=== PATIENT | female | born 1945 | race Caucasian/White ===

== ENCOUNTER → 2017-09-24 | Outpatient (CLI) | payer MEDICARE ==
--- NOTE | 2017-09-24 14:12 | US ---
EXAMINATION TYPE: US kidneys/renal and bladder DATE OF EXAM: 09/24/2017 COMPARISON: NONE CLINICAL HISTORY: R31.9 HEMATURIA. EXAM MEASUREMENTS: Right Kidney: 9.2 x 4.7 x 3.9 cm Left Kidney: 11.1 x 4.2 x 3.8 cm Post Void Residual Volume: 5.7 mL Right Kidney: No hydronephrosis. Measuring smaller than the left. Cyst visualized lower pole measurin g 1.3 x 1.1 x 1.3 cm Left Kidney: No hydronephrosis or masses seen Bladder: wnl Bilateral Jets seen: Yes Normal Post Void Residual: Yes IMPRESSION: 1. Right renal cyst
== END | disposition home or self-care (01) ==
LOC: RADUSWWP 13:19
PROVIDERS: ATTEND Internal Medicine Geriatric Medicine
DX: N28.1 Cyst of kidney, acquired (principal)
CPT/HCPCS: 76770

== ENCOUNTER → 2022-08-13 | Outpatient (CLI) | payer MEDICARE ==
--- NOTE | 2022-08-13 20:00 | BD ---
EXAMINATION TYPE: Axial Bone Density DATE OF EXAM: 08/13/2022 CLINICAL HISTORY: 76 years old Female. ICD-10 CODE: M81.0 AGE RELATED OSTEOPOROSIS Height: 63" Weight: 152 lbs FRAX RISK QUESTIONS: Alcohol (3 or more units per day): No Family History (Parent hip fracture): No Glucocorticoids (More than 3mos): No (Ex: prednisone, prednisolone, methylprednisolone, dexamethasone, and hydrocortisone). History of Fracture in Adulthood: Yes, left big toe Secondary Osteoporosis: 1. Type 1 Diabetes: No 2. Hyperthyroidism: No 3. Menopause before 45: No 4. Malnutrition: No 5. Chronic liver disease: No Rheumatoid Arthritis: No Current Tobacco Use: No RISK FACTORS HISTORY OF: Hip Fracture (Right/Left): No Spine Fracture: No History of Wrist Fracture: No Surgery to Spine/Hip(right/left)/Wrist (right/left): No Family History of Osteoporosis: No Active: Yes Diet low in dairy products/other sources of calcium: No Postmenopausal woman: Yes Lost more than 2 inches in height since high school: Yes Frequent falls: No Poor Health: No Hyperparathyroidism: No Adrenal Insufficiency: No MEDICATIONS: Prednisone or other steroids: No Thyroid Medications: No Osteoporosis Medications: No Additional Medications: Levothyroxine, propophenome, spiral molactone (diuretic), blood pressure medi cine, coumadin, statin, multi-vitamin, calcium w/vit D Additional History: None EXAM MEASUREMENTS: Bone mineral densitometry was performed using the [employer] System. Bone mineral density as measured about the Lumbar spine is: ----- L1-L4(G/cm2): 0.954 T Score Values are as follows: ----- L1: -1.5 ----- L2: -3.1 ----- L3: -2.9 ----- L4: -1.0 ----- L1-L4: -1.9 Z Score Values are as follows: ----- L1: 0.2 ----- L2: -1.4 ----- L3: -1.2 ----- L4: 0.7 ----- L1-L4: -0.2 Bone mineral density has: decreased -12.7% since study of: 12/10/2015 Bone mineral density about the R hip (g/cm2): 0.822 Bone mineral density about the L hip (g/cm2): 0.878 T Score values are as follows: -----R Neck: -0.8 -----L Neck: -0.6 -----R Total: -1.5 -----L Total: -1.0 Z Score values are as follows: -----R Neck: 1.2 -----L Neck: 1.4 -----R Total: 0.4 -----L Total: 0.8 Bone mineral density has: decreased -3.1% since study of: 12/10/2015 FRAX%s: The graph provided illustrates a 15.9% chance for a major osteoporotic fx and a 2.4% chance f or the hips probability for fx in 10 years time. IMPRESSION: Osteopenia (T Score between -2.5 and -1). There is slightly increased risk of fracture and the patient may be considered for treatment. Re-Screen 2-5 years. NOTE: T-SCORE=SD OF THE YOUNG ADULT MEAN.
== END | disposition home or self-care (01) ==
LOC: RADBDWWP 11:13
PROVIDERS: ATTEND Internal Medicine Geriatric Medicine
DX: M81.0 Age-related osteoporosis without current pathological fracture (principal); M85.89 Other specified disorders of bone density and structure, multiple sites
CPT/HCPCS: 77080

== ENCOUNTER 2022-09-15 09:13 | Day surgery (SDC) | payer MEDICARE ==
[2022-09-14 08:36] VITALS: BMI 25.9
[2022-09-15] MEDS: SODIUM CHLORIDE 0.9% 1,000 ML IV SCH (10:03)
[2022-09-15 10:20] LABS: INR 2.7 (<1.2); Prothrombin Time 26.3 sec (9.0-12.0)
[2022-09-15] MEDS ORDERED: ISOPROTERENOL 250 MCG/1.25 ML SYR IV ONE (11:16)
[2022-09-15] MEDS ORDERED: PHENYLEPHRINE-0.9% NACL SYG 1,000 MCG/10 ML SYRINGE ONE (11:16)
[2022-09-15] MEDS ORDERED: LIDOCAINE 2% INJ 20 MG/ML (2 ML VIAL) ONE (11:16)
[2022-09-15] MEDS ORDERED: FUROSEMIDE 10 MG/ML 2 ML VIAL ONE (11:16)
[2022-09-15] MEDS ORDERED: fentaNYL (PF) 50 MCG/ML 2 ML AMP ONE (11:16)
[2022-09-15] MEDS ORDERED: PROPOFOL 10 MG/ML 20 ML VIAL IV ONE (11:16)
[2022-09-15] MEDS ORDERED: SUCCINYLCHOLINE CHLORIDE 200 MG/10 ML VIAL IV ONE (11:16)
[2022-09-15] MEDS ORDERED: HEPARIN SODIUM,PORCINE 10,000 UNIT/ML 1 ML VIAL ONE (11:16)
[2022-09-15] MEDS ORDERED: LIDOCAINE 1% INJ 10MG/ML (20 ML MDV) ONE (11:40)
[2022-09-15] MEDS ORDERED: HEPARIN SOD,PORK IN 0.45% NACL 25,000 UNIT in 0.45% NACL 1 250ML.BAG IV ONE (12:20)
[2022-09-15] MEDS ORDERED: LIDOCAINE 1% INJ 10MG/ML (20 ML MDV) SQ ONE (12:22)
[2022-09-15] MEDS ORDERED: IOPAMIDOL-370 100ML BTL INJ ONE ×2 (14:06)
[2022-09-15] MEDS ORDERED: HEPARIN SODIUM (1,000 UNIT/ML) 1,000 UNIT in SODIUM CHLORIDE 0.9% 1,000 ML IRRIGATION ONE (14:50)
[2022-09-15] MEDS ORDERED: ACETAMINOPHEN IV (For NPO) 1,000 MG in EMPTY BAG 1 BAG IVPB ONE (15:59)
[2022-09-15] MEDS ORDERED: ACETAMINOPHEN TAB 325 MG TAB PO PRN (15:59)
[2022-09-15] MEDS ORDERED: WARFARIN 2.5 MG TAB PO SCH (16:15)
--- NOTE | 2022-09-15 16:20 | P.EPPROC ---
- EP Procedure Note Electrophysiology Procedure Note: PROCEDURE A. fib ablation with PVI, left atrial roof ablation, left atrial lower posterior wall ablation and typical atrial flutter ablation DIAGNOSIS Persistent Atrial fibrillation, symptomatic, refractory to therapy, RVR Previous wide [place] antral RF ablation greater than 10 years back Recurrence of A. fib with RVR on Rythmol RESULT No left atrial appendage mass seen on intracardiac echo Chronic pericarditis, exudative on intracardiac echo Dilated left atrium, common left-sided pulmonary veins, large right-sided pulmonary veins Successful A. fib ablation/pulmonary vein isolation using cryo-ablation Complete entrance block in all 4 veins confirmed Mild phrenic nerve paresis during right superior pulmonary vein ablation at around 90 seconds, immediate recovery and rapid resolution. Completely isolated right super pulmonary vein Left atrial roof line, successful Typical atrial flutter ablation Esophageal deflection YES, extreme left-sided esophagus Electrical cardioversion with a synchronized shock across the chest YES, since patient was in an A. fib/atrial tachycardia with RVR associated with low blood pressure PROCEDURE DETAILS Written informed consent prior to procedure. Patient brought to the EP lab. General anesthesia given. Heparin administered. A city maintained above 300 seconds Both groins prepped and draped per protocol and venous sheaths placed. Esophagus intubated, circa catheter for temperature monitoring an endoscope for possible esophageal deflection. Phrenic nerve monitoring performed. Esophageal temperature monitoring performed. Esophageal deflection performed if circa catheter overlapping with the balloon or circa temperature less than 27.5C Intracardiac echocardiography performed. Pericardium evaluated. Left atrial appendage evaluated. Left atrium evaluated along with pulmonary veins Transseptal catheterization performed under fluoroscopic guidance and intracardiac echo guidance Cryoablation sheath exchanged, balloon catheter along with achieve catheter placed in the left atrium. Pulmonary veins isolated in the following sequence: Left superior pulmonary vein followed by left inferior pulmonary vein, followed right superior pulmonary vein. Right inferior pulmonary vein was already isolated. No prior lesion applied Phrenic nerve stimulation along with capture thresholds within the SVC and right superior pulmonary vein to identify the phrenic nerve proximity to the cryo- balloon. Pulmonary veins isolated and confirmed with entrance and exit block. Phrenic nerve paresis was noted during RSP V. This is a mild paresis with recovery occurring almost immediately and fairly rapidly Ablation of the left atrial roof performed with sequential cryo-lesions from the left superior to the right superior pulmonary veins. Ablation of the electrograms confirmed Ablation of the lower left atrial posterior wall performed and a linear ablation was performed from the left inferior to the right inferior pulmonary veins Electrical cardioversion performed for organized atrial fibrillation with RVR associated with hypertension Inducible atrial flutter with RVR, his at EP study. Successful mapping and ablation for typical atrial flutter with complete bidirectional block Diagnostic catheters for the high right atrium, His bundle, coronary sinus placed. LA and RA pressures recorded RA pressure: 14/8/11 LA pressure: 33/6/20 Diagnostic EP study with coronary sinus pacing and recording Baseline measurements: QRS 67, QT 408 AH 56, HV 48 A full diagnostic EP study was performed with evaluation the sinus node, AV node and burst stimulation and atrial extra stimulation of triple extrastimuli With burst stimulation on Isuprel, typical atrial flutter-like rhythm was induced with concentric activation that terminated with slight withdrawal/manipulation of the coronary sinus proximally to was the office It could not be reinduced again No other arrhythmias were inducible on and off Isuprel despite a fairly aggressive atrial stimulation protocol Venous sheaths were removed and hemostasis assured with a closure device. Patient extubated and transferred to recovery PROCEDURES PERFORMED Diagnostic EP study CS pacing and recording Left and right transseptal catheterization Catheter the mapping of the tachycardia Intracardiac echocardiography Pulmonary vein isolation with transseptal and comprehensive EPS, [id number] Extended procedure duration Drug infusion, +[id number] Left atrial roof line, +[id number] Linear ablation, left atrium, +[id number] Electrical cardioversion with a synchronized shock across the chest [id number]
--- NOTE | 2022-09-15 16:24 | P.PRLE ---
RE: Zulma Price Dear Gina Zulma came in to the office last week complaining of A. fib with RVR. She has had a previous [place] antral ablation greater than 10 years back and has been on Rythmol ever since. She has maintains sinus rhythm for all these years without any recurrence However since her atrial fibrillation appeared to look like an atrial tachycardia/organized A. fib with RVR and she was very symptomatic, I brought her in for mapping and ablation today. She underwent a complete A. fib ablation with PVI, left atrial roof ablation, low posterior wall ablation in the left atrium I was able to induce typical atrial flutter after left atrial ablation and she underwent successful ablation for this too. Intracardiac echo revealed evidence of chronic exhausted to pericarditis and this is is probably the culprit for her recent recurrence of A. fib Over the last 10-11 years she has not had any atrial fibrillation after her first ablation Intracardiac echo also revealed calcification of the left coronary system and I would maximize statins to keep her LDL well below 50 mg/dL She will continue anticoagulation and I will give her a short course of colchici ne Thank you for entrusting me with the care of the patient Warm regards Sincerely Chilo Bradley
[2022-09-15] MEDS: METOPROLOL TARTRATE 25 MG TAB PO SCH (18:45)
[2022-09-15] MEDS: COLCHICINE 0.6 MG EACH PO SCH (18:51)
[2022-09-16 02:58] VITALS: TEMP 98.6
[2022-09-16] MEDS: SODIUM CHLORIDE 0.9% 1,000 ML IV SCH (03:45)
[2022-09-16 07:15] LABS: INR 2.2 (<1.2); Prothrombin Time 21.8 sec (9.0-12.0)
[2022-09-16 08:08] VITALS: BP 98/61; PULSE 68; RESP 16
--- NOTE | 2022-09-16 08:19 | P.DS ---
Providers Attending physician: Chilo Bradley Primary care physician: [facility] Course: Patient is resting comfortably in bed No breathing trouble no chest pain or pleuritic chest pain no dizziness lightheadedness She is in sinus rhythm Abdomen EKG shows sinus mechanism with PACs On examination her heart sounds are normal no rub Breath sounds are clear no rhonchi no crackles Air entry is equal bilaterally even down to the bases Tidal percussion performed at the bases posteriorly. Normal tympanic percussion sound noted with inspiration at the bases, low posterior Impression Persistent atrial fibrillation With rapid ventricular response, symptomatic, despite wide [place] antral isolation of the pulmonary veins greater than 10 years back and now on Rythmol Recent viral infection in the last 6 months or so possibly Covid with associated pericarditis that is evident on intracardiac echo Intracardiac echo also revealed calcification within the henson of the left coronary system without any clear-cut occlusive disease A. fib ablation performed, PVI, left atrial roof Low left atrial posterior wall Atrial flutter ablation performed Thereafter no arrhythmias could be induced on her off Isuprel Plan Incentive spirometry for one to 2 weeks. Explained to the patient Colchicine 0.6 g by mouth daily added to her regimen She will go back on her home medications including very low-dose beta blockers and she has Sick Sinus Syndrome along with Rythmol 6 weeks later Rythmol dose to be reduced 150 mg 3 times a day Intracardiac echo revealed calcification within the henson She is already on atorvastatin I repeated a lipid panel and will adjust her Lipitor dose to keep the LDL well below 50 g/dL Discharge home Follow up in 7-10 days Final diagnosis Persistent organized atrial fibrillation, breakthrough after wide [place] antral ablation performed greater than 10 years back Patient was on Rythmol 225 mg 3 times a day, very symptomatic from this arrhythmia with difficult rate control Intracardiac echo revealed #1 exudative pericarditis #2 calcification of the left coronary system Dilated left atrium Moderate to severe mitral regurgitation Plan Colchicine for 2 weeks at least Continue warfarin Rythmol, continue Resume all home medications as before LDL goal less than 50 mrem deciliter, maximize atorvastatin Patient Condition at Discharge: Stable Plan - Discharge Summary Discharge Rx Participant: No New Discharge Prescriptions: New Colchicine 0.6 mg PO DAILY #15 tablet Propafenone [Rythmol] 225 mg PO Q8H #100 tablet No Action Calcium Carbonate/Vitamin D3 [Calcium 500-Vit D3 5 Mcg (200 Iu)] 1 each PO BID Warfarin [Coumadin] 5 mg PO FR Warfarin [Coumadin] 2.5 mg PO SUMOTUWETHSA Atorvastatin [Lipitor] 20 mg PO DAILY Levothyroxine Sodium [Synthroid] 75 mcg PO DAILY Multivit-Min/Iron/Folic/Lutein [Centrum Silver Women Tablet] 1 tab PO DAILY Spironolactone [Aldactone] 12.5 mg PO DAILY Metoprolol Tartrate 25 mg PO BID@0800,1700 Discharge Medication List Atorvastatin [Lipitor] 20 mg PO DAILY 09/14/22 [History] Calcium Carbonate/Vitamin D3 [Calcium 500-Vit D3 5 Mcg (200 Iu)] 1 each PO BID 09/14/22 [History] Levothyroxine Sodium [Synthroid] 75 mcg PO DAILY 09/14/22 [History] Metoprolol Tartrate 25 mg PO BID@0800,1700 09/14/22 [History] Multivit-Min/Iron/Folic/Lutein [Centrum Silver Women Tablet] 1 tab PO DAILY 09/14/22 [History] Spironolactone [Aldactone] 12.5 mg PO DAILY 09/14/22 [History] Warfarin [Coumadin] 2.5 mg PO SUMOTUWETHSA 09/14/22 [History] Warfarin [Coumadin] 5 mg PO FR 09/14/22 [History] Colchicine 0.6 mg PO DAILY #15 tablet 09/15/22 [Rx] Propafenone [Rythmol] 225 mg PO Q8H #100 tablet 09/15/22 [Rx] Follow up Appointment(s)/Referral(s): Chilo Bradley MD [STAFF PHYSICIAN] - 1 Week Activity/Diet/Wound Care/Special Instructions: Post EP study - Ablation instructions 1. Keep access sites dry for 2 days. 2. No heavy lifting or straining for 2 days. 3. Avoid bending the hips repeatedly for 2 days. 4. You may go up and down stairs slowly Call if the following is noted 1. Bleeding, increasing swelling or pain at the access sites. 2. Increasing chest discomfort, especially upon taking a deep breath. 3. Increasing shortness of breath, at rest or with exertion. 4. Undue cough / phlegm 5. Difficulty or pain while swallowing. 6. Pain or change in color in the extremities. 7. Fever, chills, rigors. 8. Increasing headache or neurologic symptoms. 9. Dizziness, fainting, palpitations Patient to resume all home medications as before prior to recurrence of atrial fibrillation including Rythmol metoprolol warfarin Discharge Disposition: HOME SELF-CARE
[2022-09-16] MEDS ORDERED: LEVOTHYROXINE 75 MCG TAB PO SCH (09:00)
[2022-09-16] MEDS ORDERED: ATORVASTATIN 20 MG TAB PO SCH (09:00)
[2022-09-16] MEDS ORDERED: SPIRONOLACTONE 25 MG TAB PO SCH (09:00)
[2022-09-16] MEDS: METOPROLOL TARTRATE 25 MG TAB PO SCH (10:07)
[2022-09-16] MEDS: COLCHICINE 0.6 MG EACH PO SCH (10:08)
[2022-09-16 11:16] LABS: Chol/HDL Ratio 2.63 Ratio; LDL Cholesterol,Calculated 56.9 mg/dL (0.0-131.0); VLDL Calculation 17.52 mg/dL (5.00-40.00)
[2022-09-16] MEDS ORDERED: WARFARIN 2.5 MG TAB PO SCH (18:00)
[2022-09-18] MEDS ORDERED: WARFARIN 5 MG TAB PO SCH (18:00)
== END 2022-09-16 13:30 | disposition home or self-care (01) ==
LOC: CATHEP 09:13 → 6NMEDSUR 15:40 → CATHEP 09-16 13:30
PROVIDERS: ATTEND Internal Medicine Clinical Cardiac Electrophysiology
DX: I48.19 Other persistent atrial fibrillation (principal); I10 Essential (primary) hypertension; E78.5 Hyperlipidemia, unspecified; F17.210 Nicotine dependence, cigarettes, uncomplicated; Z79.82 Long term (current) use of aspirin; Z79.899 Other long term (current) drug therapy
CPT/HCPCS: 93623; 93656; 93657; 86900; 86901; 80061; 85610 ×2; 86850; C1759; C1894 ×2; C1769 ×3; C1760; C1730 ×2; C1893; C1733; C1766; C1732; J0330; J1644 ×3; J1940; J2001 ×2; J3010; J2704; Q9967; J2371

== ENCOUNTER 2024-03-26 17:50 | Emergency (ER) | payer MEDICARE ==
--- NOTE | 2024-03-26 18:40 | XR ---
EXAMINATION TYPE: XR chest 2V DATE OF EXAM: 03/26/2024 6:33 PM COMPARISON: None. CLINICAL INDICATION: Female, 78 years old with history of cough; H TECHNIQUE: XR chest 2V Frontal and lateral views of the chest. FINDINGS: Lungs/Pleura: There is no evidence of pleural effusion, focal consolidation, or pneumothorax. The dewayne ngs are clear bilaterally with coarsening of the interstitial markings suggestive of COPD. Pulmonary vascularity: Unremarkable. Heart/mediastinum: Cardiomediastinal silhouette is unremarkable. Musculoskeletal: No acute osseous pathology. Other findings: None IMPRESSION: 1. No acute cardiopulmonary disease/process. 2. Findings suggestive of CPPD. [facility], , 03/26/2024 6:38 PM
--- NOTE | 2024-03-26 19:00 | ED ---
General Adult HPI - General Chief complaint: Upper Respiratory Infection Stated complaint: cough, fever Time Seen by Provider: 03/26/24 18:25 Source: patient, family, RN notes reviewed Mode of arrival: ambulatory Limitations: no limitations - History of Present Illness Initial comments: Patient is an 78-year-old female present to the emergency department with cough and congestion. Onset of symptoms was around 6 days ago, chest congestion worsened yesterday. Patient has clear sputum. Patient has had low-grade fevers at home. 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 Patient did have rhonchi. Patient does have some chills as well. - Related Data Home Medications Medication Instructions Recorded Confirmed Atorvastatin [Lipitor] 20 mg PO DAILY 09/14/22 03/26/24 Levothyroxine Sodium [Synthroid] 75 mcg PO DAILY 09/14/22 03/26/24 Spironolactone [Aldactone] 12.5 mg PO DAILY 09/14/22 03/26/24 Warfarin [Coumadin] 5 mg PO MO@2100 09/14/22 03/26/24 Calcium Carbonate [Calcium] 600 mg PO DAILY 03/26/24 03/26/24 Metoprolol Tartrate [Lopressor] 12.5 mg PO BID 03/26/24 03/26/24 Multivitamins, Thera [Multivitamin 1 tab PO DAILY 03/26/24 03/26/24 (formulary)] Propafenone [Rythmol] 225 mg PO BID 03/26/24 03/26/24 Warfarin [Coumadin] 2.5 mg PO SUTUWETHFRSA@2100 03/26/24 03/26/24 Previous Rx's Medication Instructions Recorded Albuterol Inhaler [Ventolin Hfa 2 puff INHALATION Q4HR PRN #1 each 03/26/24 Inhaler] Allergies Allergy/AdvReac Type Severity Reaction Status Date / Time adhesive Allergy red/itchiness Verified 03/26/24 19:16 from cardioversion patches Review of Systems ROS Statement: Those systems with pertinent positive or pertinent negative responses have been documented in the HPI. ROS Other: All systems not noted in ROS Statement are negative. Constitutional: Reports: as per HPI, fever, chills Eyes: Denies: eye pain ENT: Reports: congestion Respiratory: Reports: cough Cardiovascular: Denies: palpitations Endocrine: Reports: fatigue Gastrointestinal: Denies: abdominal pain Past Medical History Past Medical History: Atrial Fibrillation, Hyperlipidemia Additional Past Medical History / Comment(s): See Dr Bradley's H&P, covid infection Nov 2021,mild osteopenia History of Any Multi-Drug Resistant Organisms: None Reported Past Surgical History: Breast Surgery, Cardiac Ablation, Hysterectomy Additional Past Surgical History / Comment(s): cardiac ablation x2 approx 10yrs ago,cardioversions x2 approx 10 yrs ago,left breast lump removed precancerouse, parathyroid 1 removed,qi cataracts Past Anesthesia/Blood Transfusion Reactions: No Reported Reaction Additional Past Anesthesia/Blood Transfusion Reaction / Comment(s): no hx blood transfusion Past Psychological History: No Psychological Hx Reported Smoking Status: Former smoker Past Alcohol Use History: None Reported Past Drug Use History: None Reported - Past Family History Mother Family Medical History: Cancer Additional Family Medical History / Comment(s): ovarian Cancer Brother(s) Additional Family Medical History / Comment(s): sudden with heart problem or stroke-no autopsy Father Additional Family Medical History / Comment(s): sudden with heart problem or stroke-no autopsy General Exam Limitations: no limitations General appearance: alert, in no apparent distress Head exam: Present: normocephalic Eye exam: Present: normal appearance Neck exam: Present: normal inspection Respiratory exam: Present: rhonchi Cardiovascular Exam: Present: regular rate, normal rhythm GI/Abdominal exam: Present: soft. Absent: tenderness Extremities exam: Present: normal inspection. Absent: pedal edema, calf tenderness Neurological exam: Present: alert Psychiatric exam: Present: normal affect, normal mood Skin exam: Present: normal color Course Vital Signs 03/26/24 03/26/24 03/26/24 18:07 18:41 18:50 Temperature 100.2 F H Pulse Rate 82 129 H 77 Respiratory 16 22 Rate Blood Pressure 124/75 142/78 O2 Sat by Pulse 94 L 95 Oximetry 03/26/24 20:03 Temperature 98.2 F Pulse Rate Respiratory Rate Blood Pressure O2 Sat by Pulse Oximetry Medical Decision Making - Medical Decision Making Was pt. sent in by a medical professional or institution (, PA, SCULLION CHIEF, urgent care, hospital, or [facility]...) When possible be specific @ -No Did you speak to anyone other than the patient for history (EMS, parent, family, police, friend...)? What history was obtained from this source @ - is present who is a retired physician and helps provide history including symptoms and treatment Did you review nursing and triage notes (agree or disagree)? Why? @ -I reviewed and agree with nursing and triage notes Were old charts reviewed (outside hosp., previous admission, EMS record, old EKG, old radiological studies, urgent care reports/EKG's, [facility] records)? Report findings @ -No old charts were reviewed Differential Diagnosis (chest pain, altered mental status, abdominal pain women, abdominal pain men, vaginal bleeding, weakness, fever, dyspnea, syncope, headache, dizziness, GI bleed, back pain, seizure, CVA, palpatations, mental health, musculoskeletal)? @ -Differential Fever: Pneumonia, viral URI, endocarditis, myocarditis, pericarditis, otitis, sinusitis, peritonsillar Abscess, retropharyngeal Abscess, epiglottitis, peritonitis, appendicitis, Vee cystitis, diverticulitis, hepatitis, colitis, UTI, PID, TOA, pyelonephritis, prostatitis, epididymitis, meningitis, encephalitis, pulmonary embolism, CVA, thyroid storm, pancreatitis, adrenal crisis, cavernous sinus thrombosis, this is not meant to be an all-inclusive list. EKG interpreted by me (3pts min.). @ -As above X-rays interpreted by me (1pt min.). @ -Chest x-ray shows no acute process CT interpreted by me (1pt min.). @ -None done U/S interpreted by me (1pt. min.). @ -None done What testing was considered but not performed or refused? (CT, X-rays, U/S, labs)? Why? @ -None What meds were considered but not given or refused? Why? @ -None Did you discuss the management of the patient with other professionals (professionals i.e. , PA, SC[employer]ION CHIEF, lab, RT, psych nurse, oncology social work, foreign language professor, teacher, donor relations officer, case advocate)? Give summary @ -Management discussed with who is a physician Was smoking cessation discussed for >3mins.? @ -No Was critical care preformed (if so, how long)? @ -No Were there social determinants of health that impacted care today? How? (Homelessness, low income, unemployed, alcoholism, drug addiction, transportation, low edu. Level, literacy, decrease access to med. care, group home, rehab)? @ -No Was there de-escalation of care discussed even if they declined (Discuss DNR or withdrawal of care, Hospice)? DNR status @ -No What co-morbidities impacted this encounter? (DM, HTN, Smoking, COPD, CAD, Cancer, CVA, ARF, Chemo, Hep., AIDS, mental health diagnosis, sleep apnea, morbid obesity)? @ -None Was patient admitted / discharged? Hospital course, mention meds given and route, prescriptions, significant lab abnormalities, going to OR and other pertinent info. @ -Patient presents with upper respiratory symptoms cough and congestion. RSV is positive. Patient will be discharged following nebulizer and provided prescription for albuterol inhaler as needed. Patient and family are updated on results and need for follow-up. Return parameters discussed. Undiagnosed new problem with uncertain prognosis? @ -No Drug Therapy requiring intensive monitoring for toxicity (Heparin, Nitro, Insulin, Cardizem)? @ -No Were any procedures done? @ -No Diagnosis/symptom? @ -RSV Acute, or Chronic, or Acute on Chronic? @ -Acute Uncomplicated (without systemic symptoms) or Complicated (systemic symptoms)? @ -Default Side effects of treatment? @ -No Exacerbation, Progression, or Severe Exacerbation? @ -No Poses a threat to life or bodily function? How? (Chest pain, [place], MT, pneumonia, PE, COPD, DKA, ARF, appy, cholecystitis, CVA, Diverticulitis, Homicidal, Catie cidal, threat to staff... and all critical care pts) @ -Threat to respiratory function - Lab Data Result diagrams: 03/26/24 19:10 03/26/24 19:10 Lab Results 03/26/24 03/26/24 03/26/24 Range/Units 18:09 19:10 19:10 WBC 7.2 (3.8-10.6) k/uL RBC 4.95 (3.80-5.40) m/uL Hgb 15.0 (11.4-16.0) gm/dL Hct 44.9 (34.0-46.0) % MCV 90.7 (80.0-100.0) fL MCH 30.3 (25.0-35.0) pg MCHC 33.4 (31.0-37.0) g/dL RDW 13.9 (11.5-15.5) % Plt Count 146 L (150-450) k/uL MPV 8.2 Neutrophils % 73 % Lymphocytes % 14 % Monocytes % 8 % Eosinophils % 1 % Basophils % 0 % Neutrophils # 5.3 (1.3-7.7) k/uL Lymphocytes # 1.0 (1.0-4.8) k/uL Monocytes # 0.6 (0-1.0) k/uL Eosinophils # 0.1 (0-0.7) k/uL Basophils # 0.0 (0-0.2) k/uL PT (10.0-12.5) sec INR (<1.2) APTT (22.0-30.0) sec Sodium 134 L (137-145) mmol/L Potassium 4.0 (3.5-5.1) mmol/L Chloride 99 (98-107) mmol/L Carbon Dioxide 26 (22-30) mmol/L Anion Gap 9 mmol/L BUN 12 (7-17) mg/dL Creatinine 0.81 (0.52-1.04) mg/dL Est GFR (CKD-EPI)AfAm 80 (>60 ml/min/1.73 sqM) Est GFR (CKD-EPI)NonAf 69 (>60 ml/min/1.73 sqM) Glucose 107 H (74-99) mg/dL Calcium 9.2 (8.4-10.2) mg/dL Total Bilirubin 1.6 H (0.2-1.3) mg/dL AST 29 (14-36) U/L ALT 22 (4-34) U/L Alkaline Phosphatase 79 (38-126) U/L Total Protein 6.9 (6.3-8.2) g/dL Albumin 4.3 (3.5-5.0) g/dL Influenza Type A (PCR) Not Detected (Not Detectd) Influenza Type B (PCR) Not Detected (Not Detectd) RSV (PCR) Detected A (Not Detectd) SARS-CoV-2 (PCR) Not Detected (Not Detectd) 03/26/24 Range/Units 19:10 WBC (3.8-10.6) k/uL RBC (3.80-5.40) m/uL Hgb (11.4-16.0) gm/dL Hct (34.0-46.0) % MCV (80.0-100.0) fL MCH (25.0-35.0) pg MCHC (31.0-37.0) g/dL RDW (11.5-15.5) % Plt Count (150-450) k/uL MPV Neutrophils % % Lymphocytes % % Monocytes % % Eosinophils % % Basophils % % Neutrophils # (1.3-7.7) k/uL Lymphocytes # (1.0-4.8) k/uL Monocytes # (0-1.0) k/uL Eosinophils # (0-0.7) k/uL Basophils # (0-0.2) k/uL PT 17.3 H (10.0-12.5) sec INR 1.7 H (<1.2) APTT 38.0 H (22.0-30.0) sec Sodium (137-145) mmol/L Potassium (3.5-5.1) mmol/L Chloride (98-107) mmol/L Carbon Dioxide (22-30) mmol/L Anion Gap mmol/L BUN (7-17) mg/dL Creatinine (0.52-1.04) mg/dL Est GFR (CKD-EPI)AfAm (>60 ml/min/1.73 sqM) Est GFR (CKD-EPI)NonAf (>60 ml/min/1.73 sqM) Glucose (74-99) mg/dL Calcium (8.4-10.2) mg/dL Total Bilirubin (0.2-1.3) mg/dL AST (14-36) U/L ALT (4-34) U/L Alkaline Phosphatase (38-126) U/L Total Protein (6.3-8.2) g/dL Albumin (3.5-5.0) g/dL Influenza Type A (PCR) (Not Detectd) Influenza Type B (PCR) (Not Detectd) RSV (PCR) (Not Detectd) SARS-CoV-2 (PCR) (Not Detectd) Disposition Clinical Impression: RSV infection Disposition: HOME SELF-CARE Condition: Stable Instructions (If sedation given, give patient instructions): Respiratory Syncytial Virus (ED) Additional Instructions: Please do follow-up with your primary care physician in the next couple of days for recheck. Return for difficulty in breathing, uncontrolled fevers, increased weakness, not tolerating oral intake, worsening symptoms or other concerns. Prescription for inhaler sent to pharmacy to use use as needed. Prescriptions: Albuterol Inhaler [Ventolin Hfa Inhaler] 2 puff INHALATION Q4HR PRN #1 each PRN Reason: Dyspnea Is patient prescribed a controlled substance at d/c from ED?: No Referrals: Lavon Morales MD [Primary Care Provider] - 1-2 days Time of Disposition: 20:25
[2024-03-26 19:14] LABS: Influenza A Not Detected (Not Detectd); Influenza B Not Detected (Not Detectd); RSV Detected (Not Detectd)
[2024-03-26] MEDS: ACETAMINOPHEN TAB 500 MG TAB PO STA (19:14)
[2024-03-26] MEDS: IBUPROFEN 400 MG TAB PO STA (19:14)
[2024-03-26 19:40] LABS: ALT 22 U/L (4-34); AST 29 U/L (14-36); African American GFR (CKD) 80 (>60 ml/min/1.73 sqM); Albumin 4.3 g/dL (3.5-5.0); Alkaline Phosphatase 79 U/L (38-126); Anion Gap 9 mmol/L; Blood Urea Nitrogen 12 mg/dL (7-17); Calcium 9.2 mg/dL (8.4-10.2); Carbon Dioxide 26 mmol/L (22-30); Chloride 99 mmol/L (98-107); Glucose 107 mg/dL (74-99); Non-African American GFR(CKD) 69 (>60 ml/min/1.73 sqM); Sodium 134 mmol/L (137-145); Total Bilirubin 1.6 mg/dL (0.2-1.3); Total Protein 6.9 g/dL (6.3-8.2)
[2024-03-26 19:46] LABS: Basophils % (A) 0 %; Eosinophils # (A) 0.1 k/uL (0-0.7); Eosinophils % (A) 1 %; HCT 44.9 % (34.0-46.0); Lymphocytes % (A) 14 %; MCH 30.3 pg (25.0-35.0); MCHC 33.4 g/dL (31.0-37.0); MCV 90.7 fL (80.0-100.0); Mean Platelet Volume 8.2; Monocytes # (A) 0.6 k/uL (0-1.0); Monocytes % (A) 8 %; Neutrophils # (A) 5.3 k/uL (1.3-7.7); Neutrophils % (A) 73 %; Platelet Count 146 k/uL (150-450); RBC 4.95 m/uL (3.80-5.40); RDW 13.9 % (11.5-15.5); WBC 7.2 k/uL (3.8-10.6)
[2024-03-26 19:53] LABS: INR 1.7 (<1.2); Prothrombin Time 17.3 sec (10.0-12.5)
[2024-03-26] MEDS: IPRATROPIUM-ALBUTEROL 3 ML NEB INHALATION STA (20:22)
[2024-03-26 20:41] VITALS: BP 110/56; PULSE 74; RESP 20; TEMP 99
== END 2024-03-26 21:09 | disposition home or self-care (01) ==
LOC: EC 17:50
DX: R05.9 Cough, unspecified (principal); B97.4 Respiratory syncytial virus as the cause of diseases classified elsewhere; Z87.891 Personal history of nicotine dependence; Z88.8 Allergy status to other drugs, medicaments and biological substances
CPT/HCPCS: 36415; 71046; 80053; 85025; 85610; 85730; 87636; 94640; 99284